=== PATIENT | male | born 1950 | race Caucasian/White ===

== ENCOUNTER → 2017-02-01 | Outpatient (CLI) | payer OTHER, MEDICARE ==
--- NOTE | ~2017-02-01 | EEG ---
[facility] [address] [place] [address] ELECTROENCEPHALOGRAM Name: SOLEDAD MENDEZ [id number] Admission: 02/01/17 Attend Phys: Fernando Bernabe MD Discharge: Date of : 50 Report #: [id number] THIS REPORT FOR: //name// CC: Fernando Kelly DATE OF SERVICE: 02/01/2017 This patient's EEG was done by placing the electrodes by standard 10-20 system of electrode placement. Both referential and sequential montages were used for recording. Background activity in this patient's EEG is about 11 Hz and 40 microvolts. This patient became drowsy, thus associated with bilateral slowing and a few vertex sharp waves. Photic stimulation is unremarkable. Throughout the record, no active epileptiform activity was noticed. IMPRESSION: This patient's EEG is within normal limits. Thank you very much for this referral. <ELECTRONICALLY SIGNED> By: Fernando Bernabe MD 02/04/17 [id number] Fernando Bernabe MD /nt
== END ==
LOC: MRI 09:54 → NEURO 09:54 → MRI 11:51
DX: I67.82 Cerebral ischemia (principal); H74.8X3 Other specified disorders of middle ear and mastoid, bilateral